=== PATIENT | female | born 1970 | race African-American/Black ===

== ENCOUNTER 2017-04-14 09:53 | Emergency (ER) | payer OTHER, MEDICARE ==
[2017-04-14 10:23] LABS: BASOPHIL 0.3 % (0-2); EOSINOPHIL 1.3 % (0-5); HCT 44.3 % (37.0-47.0); HGB 14.5 g/dl (12.5-16.0); LYMPHOCYTE 24.3 % (15-48); MCH 30.1 pg (25.0-31.0); MCHC 32.7 g/dL (32.0-36.0); MCV 92.1 fL (78.0-100.0); MONOCYTE 10.8 % (0-12); MPV 9.8 fL (6.0-9.5); NEUTROPHIL 63.3 % (41-80); PLT 262 K/uL (150-400); RBC 4.81 M/uL (4.20-5.40); RDW 15.6 % (11.5-14.0); WBC 6.2 K/uL (4.0-10.5)
[2017-04-14 10:56] LABS: INR 1.12 (0.9-1.2); PTT 31.1 SECONDS (23.2-31.4)
[2017-04-14 11:04] LABS: CKMB 2.25 ng/mL (0.97-4.94); MYOGLOBIN 46 ng/mL (26-65); TROPONIN T < 0.010 ng/mL
[2017-04-14 11:05] LABS: ALBUMIN 4.3 g/dL (3.5-5.0); BILIRUBIN - TOTAL 0.7 mg/dL (0.1-1.0); CREATININE 0.7 mg/dL (0.5-1.0); GLOBULIN (CALCULATION) 3.4 g/dL (2.2-4.2); POTASSIUM 3.6 mmol/L (3.5-5.1); TOTAL PROTEIN 7.7 g/dL (6.4-8.3)
[2017-04-14 11:13] LABS: BILIRUBIN NEGATIVE (NEGATIVE); BLOOD NEGATIVE Ery/uL (NEGATIVE); CLARITY CLEAR (CLEAR); COLOR YELLOW (YELLOW); GLUCOSE (U) NORMAL (NORMAL); KETONE (U) TRACE mg/dL (NEGATIVE); LEUKOCYTES NEGATIVE Leu/uL (NEGATIVE); NITRITE NEGATIVE (NEGATIVE); PROTEIN TRACE (LOW) mg/dL (NEGATIVE); SPECIFIC GRAVITY 1.025 (1.001-1.030)
== END 2017-04-14 11:18 | disposition other institution (70) ==
LOC: FER 09:53
PROVIDERS: Emergency Medicine
DX: R20.2 Paresthesia of skin (principal); M54.5 Low back pain; R32 Unspecified urinary incontinence; R53.1 Weakness; I10 Essential (primary) hypertension; Z79.899 Other long term (current) drug therapy; Z98.890 Other specified postprocedural states
CPT/HCPCS: 36415; 70450; 71010; 80053; 80061; 81003; 82550; 82553; 83874; 84484; 85025; 85610; 85730; 93005

== ENCOUNTER 2017-07-25 17:27 | Emergency (ER) | payer OTHER, MEDICARE | END 2017-07-25 18:30 | disposition home or self-care (01) | LOC: FER 17:27 | DX: L08.89 Other specified local infections of the skin and subcutaneous tissue (principal); B02.9 Zoster without complications; I10 Essential (primary) hypertension | CPT/HCPCS: 99282 ==

== ENCOUNTER 2020-11-25 18:12 | Emergency (ER) | payer OTHER ==
[~2020-11-25 18:12] MED LIST: AMPYRA10 MG PO; ASPIRIN325 MG PO; AUGMENTIN 875-1 EACH PO; AZO CRANBERRY1 EAC1 PO; BACLOFEN 10MG T10 MG PO; CBD OIL; DITROPAN5 MG PO; FLEXERIL10 MG PO; GILENYA0.5 MG PO; LEVEMIR VI100 UNITS/ SC; LIDOCAINE 2%30 ML TOP; LISINOPRIL 20MG20 MG PO; LISINOPRIL-HCT1 EAC2 PO; LOPRESSOR100 MG PO; LYRICA 50MG CAP50 MG PO; MEDROL 4MG DOSEP4 MG PO; METFORMIN HCL500 MG PO; MICRO-K10 MEQ PO; NEURONTIN600 MG PO; NOVOLOG DO100 UNIT/M SC; PERCOCET 5-3251 EACH PO; PERCOCET 7.5/321 TAB PO; PREDNISONE 20MG20 MG PO; PROCARDIA10 MG PO; ROBAXIN750 MG PO; SILVADENE20 G1 TOP; TRAMADOL HCL50 MG PO; VENLAFAXINE HCL50 MG PO; VITAMIN D400 UNI2 PO
[2020-11-25 18:40] LABS: BASOPHIL 0.5 % (0-2); HCT 45.8 % (37.0-47.0); HGB 13.9 g/dl (12.5-16.0); LYMPHOCYTE 20.5 % (15-48); MCH 27.6 pg (25.0-31.0); MCHC 30.3 g/dL (32.0-36.0); MCV 90.9 fL (78.0-100.0); MONOCYTE 8.8 % (0-12); MPV 10.9 fL (6.0-9.5); NRBC 0; PLT 214 K/uL (150-400); RBC 5.04 M/uL (4.20-5.40); RDW 13.5 % (11.5-14.0); WBC 5.9 K/uL (4.0-10.5)
[2020-11-25 18:54] LABS: BILIRUBIN NEGATIVE (NEGATIVE); BLOOD TRACE-INTACT Ery/uL (NEGATIVE); CLARITY HAZY (CLEAR); COLOR YELLOW (YELLOW); GLUCOSE (U) 2+ mg/dL (NORMAL); LEUKOCYTES TRACE Leu/uL (NEGATIVE); NITRITE POSITIVE (NEGATIVE); PROTEIN TRACE (LOW) mg/dL (NEGATIVE); SPECIFIC GRAVITY >=1.030 (1.001-1.030); UROBILINOGEN 0.2 mg/dL (0.2-1.0)
[2020-11-25 18:56] LABS: ALBUMIN 3.5 g/dL (3.4-5.0); BILIRUBIN - TOTAL 0.5 mg/dL (0.2-1.0); BUN/CREAT RATIO (CALC) 14.3 RATIO; CREATININE 0.42 mg/dL (0.51-0.95); GLOBULIN (CALCULATION) 4.8 g/dL; POTASSIUM 3.8 mmol/L (3.5-5.1); TOTAL PROTEIN 8.3 g/dL (6.4-8.2)
[2020-11-25 19:00] LABS: BACTERIA 2+; SQUAMOUS EPITHELIAL CELLS RARE; YEAST PRESENT
[2020-11-25] MEDS ORDERED: TRAMADOL HCL50 MG PO (20:45)
[2020-11-25] MEDS ORDERED: MACROBID100 MG PO (20:48)
[2021-01-24] MEDS ORDERED: LIDOCAINE 2%30 ML TOP (14:49)
[2021-01-24] MEDS ORDERED: SILVADENE20 GM TOP (14:49)
[2021-02-21] MEDS ORDERED: SILVADENE20 G1 TOP (12:52)
[2021-02-21] MEDS ORDERED: LIDOCAINE 2%30 ML TOP (12:52)
[2021-03-09] MEDS ORDERED: LIDOCAINE 2%30 ML TOP (10:39)
[2021-03-09] MEDS ORDERED: SILVADENE20 GM TOP (10:39)
[2021-04-04] MEDS ORDERED: BACTRIM DS TAB1 EACH PO (08:34)
== END 2020-11-25 21:20 | disposition home or self-care (01) ==
LOC: FER 18:12
PROVIDERS: Emergency Medicine
DX: G35 Multiple sclerosis (principal); N39.0 Urinary tract infection, site not specified; E11.9 Type 2 diabetes mellitus without complications; I10 Essential (primary) hypertension
CPT/HCPCS: 36415; 80053; 81001; 85025; 96372; J1040; J1885

== ENCOUNTER 2021-04-28 23:06 | Emergency (ER) | payer OTHER ==
[~2021-04-28 23:06] MED LIST changes: +BACTRIM DS TAB1 EACH PO; +MACROBID100 MG PO; +SILVADENE20 GM TOP
[2021-04-29 01:04] LABS: BASOPHIL 0.7 % (0-2); EOSINOPHIL 2.1 % (0-5); HCT 43.1 % (37.0-47.0); LYMPHOCYTE 39.3 % (15-48); MCH 27.5 pg (25.0-31.0); MCHC 30.2 g/dL (32.0-36.0); MCV 91.3 fL (78.0-100.0); MONOCYTE 7.6 % (0-12); MPV 12.3 fL (6.0-9.5); NRBC 0; PLT 224 K/uL (150-400); RBC 4.72 M/uL (4.20-5.40); RDW 13.7 % (11.5-14.0); WBC 9.2 K/uL (4.0-10.5)
[2021-04-29 01:05] LABS: BILIRUBIN NEGATIVE (NEGATIVE); BLOOD NEGATIVE Ery/uL (NEGATIVE); CLARITY CLEAR (CLEAR); COLOR YELLOW (YELLOW); GLUCOSE (U) NORMAL (NORMAL); LEUKOCYTES TRACE Leu/uL (NEGATIVE); NITRITE NEGATIVE (NEGATIVE); PROTEIN NEGATIVE (NEGATIVE); SPECIFIC GRAVITY 1.025 (1.001-1.030)
[2021-04-29 01:07] LABS: BACTERIA 1+; SQUAMOUS EPITHELIAL CELLS 20-50; URINARY RBC RARE
[2021-04-29 01:08] LABS: AMPHETAMINES NEGATIVE (NEGATIVE); BARBITURATES NEGATIVE (NEGATIVE); ECSTASY (MDMA) NEGATIVE (NEGATIVE); MARIJUANA (THC) NEGATIVE (NEGATIVE); METHADONE NEGATIVE (NEGATIVE); OPIATES NEGATIVE (NEGATIVE); OXYCODONE NEGATIVE (NEGATIVE)
[2021-04-29 01:51] LABS: ALBUMIN 3.5 g/dL (3.4-5.0); BILIRUBIN - TOTAL 0.3 mg/dL (0.2-1.0); CREATININE 0.6 mg/dL (0.51-0.95); GLOBULIN (CALCULATION) 5.1 g/dL; POTASSIUM 3.5 mmol/L (3.5-5.1); TOTAL PROTEIN 8.6 g/dL (6.4-8.2)
[2021-04-29 01:52] LABS: LACTIC ACID 1.6 mmol/L (0.4-1.9)
[2021-04-29] MEDS ORDERED: LASIX10 MG/ML PO (04:29)
[2021-04-29] MEDS ORDERED: K-DUR20 MEQ PO (04:29)
== END 2021-04-29 04:45 | disposition home or self-care (01) ==
LOC: FER 23:06
PROVIDERS: Emergency Medicine
DX: R60.0 Localized edema (principal); I10 Essential (primary) hypertension; E11.9 Type 2 diabetes mellitus without complications
CPT/HCPCS: 36415; 71045; 80053; 80305; 81001; 82550; 83605; 83880; 85025; 93005; 93971; J1940; J2270; J2405

== ENCOUNTER 2022-04-26 16:55 | Emergency (ER) | payer OTHER, MEDICARE ==
[~2022-04-26 16:55] MED LIST changes: +K-DUR20 MEQ PO; +LASIX10 MG/ML PO
[2022-04-26] MEDS ORDERED: NORCO 5-325 TA1 EACH PO (23:16)
== END 2022-04-26 23:52 | disposition home or self-care (01) ==
LOC: FER 16:55
DX: L89.153 Pressure ulcer of sacral region, stage 3 (principal); I10 Essential (primary) hypertension; E11.9 Type 2 diabetes mellitus without complications; Z79.4 Long term (current) use of insulin; Z79.84 Long term (current) use of oral hypoglycemic drugs; Z79.899 Other long term (current) drug therapy
CPT/HCPCS: 99283

== ENCOUNTER 2022-05-25 09:44 | Emergency (ER) | payer OTHER ==
[~2022-05-25 09:44] MED LIST changes: +DIFLUCAN150 MG PO; +NORCO 5-325 TA1 EACH PO
[2022-05-25 11:34] LABS: BASOPHIL 0.7 % (0-2); EOSINOPHIL 1.2 % (0-5); HCT 43.9 % (37.0-47.0); HGB 13.8 g/dl (12.5-16.0); LYMPHOCYTE 13.4 % (15-48); MCH 27.4 pg (25.0-31.0); MCHC 31.4 g/dL (32.0-36.0); MCV 87.1 fL (78.0-100.0); MONOCYTE 5.8 % (0-12); MPV 11.7 fL (6.0-9.5); NEUTROPHIL 77.6 % (41-80); NRBC 0; PLT 326 K/uL (150-400); RBC 5.04 M/uL (4.20-5.40); RDW 14.4 % (11.5-14.0); WBC 8.5 K/uL (4.0-10.5)
[2022-05-25 11:56] LABS: CREATININE 0.53 mg/dL (0.51-0.95); POTASSIUM 4.3 mmol/L (3.5-5.1)
[2022-05-25 12:07] LABS: LACTIC ACID 1.7 mmol/L (0.4-1.9)
[2022-05-25] MEDS ORDERED: PERCOCET 5-3251 EACH PO (12:42)
[2022-05-29] MEDS ORDERED: LIDOCAINE 2%30 ML TOP (10:11)
== END 2022-05-25 16:52 | disposition home or self-care (01) ==
LOC: FER 09:44
PROVIDERS: Emergency Medicine
DX: L89.152 Pressure ulcer of sacral region, stage 2 (principal); G89.29 Other chronic pain; M54.9 Dorsalgia, unspecified; E11.9 Type 2 diabetes mellitus without complications; I10 Essential (primary) hypertension; Z88.5 Allergy status to narcotic agent; Z79.899 Other long term (current) drug therapy
CPT/HCPCS: 36415; 80048; 83605; 84145; 85025; 96372; J1170; J2405

== ENCOUNTER 2022-06-01 10:55 | Emergency (ER) | payer OTHER, MEDICARE ==
[2022-06-01 13:41] LABS: BASOPHIL 0.6 % (0-2); EOSINOPHIL 0.7 % (0-5); HCT 44.3 % (37.0-47.0); HGB 13.8 g/dl (12.5-16.0); LYMPHOCYTE 12.7 % (15-48); MCH 27.1 pg (25.0-31.0); MCHC 31.2 g/dL (32.0-36.0); MCV 86.9 fL (78.0-100.0); MONOCYTE 5.3 % (0-12); NEUTROPHIL 80.2 % (41-80); NRBC 0; PLT 312 K/uL (150-400); RDW 14.6 % (11.5-14.0); WBC 8.4 K/uL (4.0-10.5)
[2022-06-01 13:53] LABS: BUN/CREAT RATIO (CALC) 17.6 RATIO; CREATININE 0.51 mg/dL (0.51-0.95); POTASSIUM 3.9 mmol/L (3.5-5.1)
[2022-06-01] MEDS ORDERED: PERCOCET 5-3251 EACH PO (14:18)
== END 2022-06-01 15:30 | disposition home or self-care (01) ==
LOC: FER 10:55
PROVIDERS: Nurse Practitioner Family
DX: L89.322 Pressure ulcer of left buttock, stage 2 (principal); L89.312 Pressure ulcer of right buttock, stage 2; R30.0 Dysuria; E11.9 Type 2 diabetes mellitus without complications; I10 Essential (primary) hypertension; Z88.5 Allergy status to narcotic agent; Z79.4 Long term (current) use of insulin; Z79.899 Other long term (current) drug therapy
CPT/HCPCS: 36415; 80048; 85025; 99283